=== PATIENT | female | born 1960 | race Caucasian/White ===

== ENCOUNTER 2021-04-20 07:18 | Inpatient (IN) ==
[2021-04-20] MEDS ORDERED: Tdap (Boostrix) Vaccine 0.5 ML SYRINGE IM ONE (07:55)
[2021-04-20 08:19] LABS: Bilirubin,Urine Negative (Negative); Blood,Urine Negative (Negative); Clarity,Urine Clear (Clear); Color,Urine Colorless (Yellow); Glucose,Urine (UA) Normal (Normal); Ketones,Urine Negative (Negative); Leukocyte Esterase,Urine Trace (Negative); Nitrite,Urine Negative (Negative); Protein,Urine Negative (Neg-Trace); RBC,Urine 0-3 per hpf (0-3); Specific Gravity,Urine < 1.005 (1.010-1.025); Urobilinogen,Urine Normal (Normal); WBC,Urine 0-3 per hpf (0-3)
[2021-04-20 08:21] LABS: Basophils # 0.1 K/mcL (0.0-0.2); Basophils % 1.3 %; Eosinophils # 0.1 K/mcL (0.0-0.6); Eosinophils % 1.3 %; Hematocrit 44.7 % (35.3-44.9); Hemoglobin 15.2 g/dL (11.5-15.4); Immature Granulocytes % 0.4 % (0-4); Lymphocytes # 1.2 K/mcL (0.6-4.6); Lymphocytes % 14.8 %; Mean Corpuscular Hemoglobin 29.9 pg (28.0-33.3); Mean Corpuscular Volume 87.8 fL (83.0-100.0); Mean Platelet Volume 9.6 fL (9.4-12.4); Monocytes # 0.7 K/mcL (0.0-1.3); Monocytes % 8.8 %; Neutrophils # 5.7 K/mcL (1.6-8.9); Platelet Count 265 K/mcL (140-400); Red Blood Count 5.09 M/mcL (3.82-4.97); Red Cell Distribution Width 12.4 % (11.5-14.5); Segmented Neutrophils % 73.4 %; White Blood Count 7.8 K/mcL (4.3-11.1)
[2021-04-20 08:22] LABS: Amphetamine Screen,Urine Negative ng/mL (Cutoff=1000); Barbiturate Screen,Urine Negative ng/mL (Cutoff=200); Benzodiazepines Screen,Urine Negative ng/mL (Cutoff=300); Cannabinoid Screen,Urine Negative ng/mL (Cutoff = 50); Cocaine Screen,Urine Negative ng/mL (Cutoff= 300); Opiate Screen,Urine Negative ng/mL (Cutoff=300); Phencyclidine Screen,Urine Negative ng/mL (Cutoff=25)
[2021-04-20 09:11] LABS: Estimated Average Glucose 114 mg/dl; Hemoglobin A1C 5.6 %
[2021-04-20 10:21] LABS: Acetaminophen < 10 mcg/mL (10-20); Alanine Aminotransferase 9 Units/L (7-52); Albumin 5.3 g/dL (3.5-5.7); Albumin/Globulin Ratio 1.8 (1.1-2.2); Alkaline Phosphatase 75 Units/L (34-104); Aspartate Amino Transferase 16 Units/L (13-39); BUN/Creatinine Ratio 12 (6-26); Bilirubin,Direct 0.1 mg/dL (0.0-0.2); Bilirubin,Indirect 0.7 mg/dL (0.0-1.0); Bilirubin,Total 0.8 mg/dL (0.3-1.0); Blood Urea Nitrogen 7 mg/dL (8-23); Carbon Dioxide 26 mEq/L (23-29); Chloride 97 mEq/L (98-107); Chol/HDL Ratio 1.9 (0-4.9); Cholesterol 131 mg/dL (< 200); Ethanol < 10 mg/dL (Less than 10); Globulin 2.9 g/dL (2.4-3.5); Glucose 72 mg/dL (70-105); HDL Cholesterol 69 mg/dL (40-59); LDL Cholesterol,Calculated 48 mg/dL (< 100); Osmolality,Calculated 275 (280-300); Potassium 3.1 mEq/L (3.5-5.1); Salicylate < 2.5 mg/dL (15.0-30.0); Sodium 134 mEq/L (136-145); Thyroid Stimulating Hormone 0.647 mcIU/mL (0.340-5.600); Total Protein 8.2 g/dL (6.4-8.9); Triglycerides 69 mg/dL (< 150); eGFR For African Americans > 60 (> 60); eGFR For Non-African Americans > 60 (> 60)
[2021-04-20 13:55] LABS: Influenza A PCR Negative (Negative); Influenza B PCR Negative (Negative); Resp. Syncytial Virus PCR Negative (Negative)
[2021-04-20 13:56] LABS: SARS-CoV-2 by PCR (In House) Negative (Negative)
[2021-04-20] MEDS ORDERED: *HR* LORazepam 2 MG/ML VIAL IM PRN (16:54)
[2021-04-20] MEDS ORDERED: QUEtiapine Fumarate 25 MG TABLET PO PRN (16:54)
[2021-04-20] MEDS: Mirtazapine 15 MG TABLET PO SCH (21:10)
[2021-04-20] MEDS: Acetaminophen 325 MG TABLET PO PRN (22:06)
[2021-04-21] MEDS: *HR* LORazepam 1 MG TABLET PO PRN (03:51)
[2021-04-21] MEDS ORDERED: MOM Conc 10 ML UD.LIQ PO PRN (08:20)
[2021-04-21] MEDS ORDERED: Mag Hydrox/Al Hydrox/Simeth 30 ML UDC PO PRN (08:20)
[2021-04-21] MEDS: amLODIPine 5 MG TABLET PO SCH (08:47)
[2021-04-21] MEDS: Aspirin 81 MG TAB.CHEW PO SCH (08:48)
[2021-04-21] MEDS: Magic Mouthwash 10 ML UD Cup PO SCH ×2 (11:52→15:58)
[2021-04-21] MEDS: Mirtazapine 15 MG TABLET PO SCH (21:29)
[2021-04-21] MEDS: Melatonin 3 MG TABLET PO PRN (21:30)
[2021-04-22] MEDS: QUEtiapine Fumarate 25 MG TABLET PO PRN ×4 (01:05→20:57)
[2021-04-22] MEDS: Acetaminophen 325 MG TABLET PO PRN (02:26)
[2021-04-22] MEDS: Magic Mouthwash 10 ML UD Cup PO SCH ×3 (08:17→16:00)
[2021-04-22] MEDS: amLODIPine 5 MG TABLET PO SCH (08:17)
[2021-04-22] MEDS: Aspirin 81 MG TAB.CHEW PO SCH (08:17)
[2021-04-22] MEDS: Mirtazapine 15 MG TABLET PO SCH (20:57)
[2021-04-22] MEDS: *HR* LORazepam 1 MG TABLET PO PRN (23:23)
[2021-04-23] MEDS: Melatonin 3 MG TABLET PO PRN ×2 (00:21→21:04)
[2021-04-23] MEDS: Metoprolol XL (24 HR) Succ 50 MG TAB.ER.24H PO SCH (08:59)
[2021-04-23] MEDS: Magic Mouthwash 10 ML UD Cup PO SCH ×3 (08:59→16:29)
[2021-04-23] MEDS: amLODIPine 5 MG TABLET PO SCH (08:59)
[2021-04-23] MEDS: Aspirin 81 MG TAB.CHEW PO SCH (09:00)
[2021-04-23] MEDS: Mirtazapine 15 MG TABLET PO SCH (21:02)
[2021-04-23] MEDS: *HR* LORazepam 0.5 MG TABLET PO PRN (21:05)
[2021-04-24] MEDS: Magic Mouthwash 10 ML UD Cup PO SCH ×3 (07:38→16:33)
[2021-04-24] MEDS: *HR* LORazepam 0.5 MG TABLET PO PRN (07:58)
[2021-04-24] MEDS: amLODIPine 5 MG TABLET PO SCH (08:36)
[2021-04-24] MEDS: Aspirin 81 MG TAB.CHEW PO SCH (08:40)
[2021-04-24] MEDS: Metoprolol XL (24 HR) Succ 50 MG TAB.ER.24H PO SCH (08:40)
[2021-04-24] MEDS: Cholecalciferol (D-3) 1,000 UNIT (25MCG) TABLET PO SCH (08:41)
[2021-04-24] MEDS ORDERED: *HR* LORazepam 0.5 MG TABLET PO ONE (11:47)
[2021-04-24] MEDS: *HR* LORazepam 1 MG TABLET PO SCH (20:31)
[2021-04-24] MEDS: Melatonin 3 MG TABLET PO PRN (20:31)
[2021-04-24] MEDS: Mirtazapine 15 MG TABLET PO SCH (20:32)
[2021-04-25] MEDS: Magic Mouthwash 10 ML UD Cup PO SCH ×3 (07:47→16:29)
[2021-04-25] MEDS: amLODIPine 5 MG TABLET PO SCH (08:42)
[2021-04-25] MEDS: Aspirin 81 MG TAB.CHEW PO SCH (08:42)
[2021-04-25] MEDS: Metoprolol XL (24 HR) Succ 50 MG TAB.ER.24H PO SCH (08:43)
[2021-04-25] MEDS: *HR* LORazepam 1 MG TABLET PO SCH ×2 (08:43→20:46)
[2021-04-25] MEDS: Cholecalciferol (D-3) 1,000 UNIT (25MCG) TABLET PO SCH (08:43)
[2021-04-25] MEDS ORDERED: Sennosides 8.6 MG TABLET PO SCH (10:45)
[2021-04-25 19:22] LABS: Metanephrine, Plasma 0.34 nmol/L (0.00-0.49)
[2021-04-25] MEDS: Melatonin 3 MG TABLET PO PRN (20:46)
[2021-04-25] MEDS: Sennosides 8.6 MG TABLET PO SCH (20:46)
[2021-04-25] MEDS: Mirtazapine 15 MG TABLET PO SCH (20:46)
[2021-04-26] MEDS: Magic Mouthwash 10 ML UD Cup PO SCH ×3 (07:46→16:17)
[2021-04-26] MEDS: amLODIPine 5 MG TABLET PO SCH (08:40)
[2021-04-26] MEDS: Aspirin 81 MG TAB.CHEW PO SCH (08:41)
[2021-04-26] MEDS: *HR* LORazepam 1 MG TABLET PO SCH ×2 (08:41→20:46)
[2021-04-26] MEDS: Metoprolol XL (24 HR) Succ 50 MG TAB.ER.24H PO SCH (08:41)
[2021-04-26] MEDS: Cholecalciferol (D-3) 1,000 UNIT (25MCG) TABLET PO SCH (08:41)
[2021-04-26] MEDS ORDERED: *HR* LORazepam 0.5 MG TABLET PO PRN (09:52)
[2021-04-26 20:46] VITALS: PULSE 75
[2021-04-26] MEDS: Sennosides 8.6 MG TABLET PO SCH (20:46)
[2021-04-26] MEDS: Mirtazapine 15 MG TABLET PO SCH (20:46)
[2021-04-26] MEDS: Melatonin 3 MG TABLET PO PRN (20:46)
[2021-04-27] MEDS: Magic Mouthwash 10 ML UD Cup PO SCH ×2 (08:05→11:38)
[2021-04-27] MEDS: *HR* LORazepam 1 MG TABLET PO SCH (08:05)
[2021-04-27] MEDS: amLODIPine 5 MG TABLET PO SCH (08:33)
[2021-04-27] MEDS: Metoprolol XL (24 HR) Succ 50 MG TAB.ER.24H PO SCH (08:34)
[2021-04-27] MEDS: Cholecalciferol (D-3) 1,000 UNIT (25MCG) TABLET PO SCH (08:34)
[2021-04-27] MEDS: Aspirin 81 MG TAB.CHEW PO SCH (08:34)
[2021-04-27 08:39] VITALS: BP 146/104; TEMP 98; O2SAT 97
== END 2021-04-27 15:55 | disposition home or self-care (01) | DRG 756 ==
LOC: EMEROOARM 07:18 → 1ANU 16:43
PROVIDERS: ADMIT Psychiatry & Neurology Psychiatry; ATTEND Psychiatry & Neurology Psychiatry

== ENCOUNTER 2022-01-19 07:39 | Inpatient (IN) ==
[2022-01-19 08:26] LABS: Basophils # 0.2 K/mcL (0.0-0.2); Basophils % 2.4 %; Eosinophils # 0.1 K/mcL (0.0-0.6); Eosinophils % 1.4 %; Hematocrit 43.1 % (35.3-44.9); Immature Granulocytes % 0.1 % (0-4); Lymphocytes # 1.7 K/mcL (0.6-4.6); Lymphocytes % 23.7 %; Mean Corpuscular HGB Conc 34.8 g/dL (31.6-35.5); Mean Corpuscular Hemoglobin 30.1 pg (28.0-33.3); Mean Corpuscular Volume 86.5 fL (83.0-100.0); Mean Platelet Volume 9.5 fL (9.4-12.4); Monocytes # 0.5 K/mcL (0.0-1.3); Monocytes % 7.1 %; Neutrophils # 4.6 K/mcL (1.6-8.9); Platelet Count 268 K/mcL (140-400); Red Blood Count 4.98 M/mcL (3.82-4.97); Red Cell Distribution Width 14.1 % (11.5-14.5); Segmented Neutrophils % 65.3 %; White Blood Count 7.1 K/mcL (4.3-11.1)
[2022-01-19 08:29] LABS: Amphetamine Screen,Urine Negative ng/mL (Cutoff=1000); Barbiturate Screen,Urine Negative ng/mL (Cutoff=200); Benzodiazepines Screen,Urine Positive ng/mL (Cutoff=300)
[2022-01-19 08:30] LABS: Cannabinoid Screen,Urine Negative ng/mL (Cutoff = 50); Cocaine Screen,Urine Negative ng/mL (Cutoff= 300); Opiate Screen,Urine Negative ng/mL (Cutoff=300); Phencyclidine Screen,Urine Negative ng/mL (Cutoff=25)
[2022-01-19 08:45] LABS: Acetaminophen < 10 mcg/mL (10-20); BUN/Creatinine Ratio 8 (6-26); Blood Urea Nitrogen 5 mg/dL (8-23); Calcium 9.4 mg/dL (8.6-10.3); Carbon Dioxide 28 mEq/L (23-29); Chloride 98 mEq/L (98-107); Ethanol < 10 mg/dL (Less than 10); Glucose 90 mg/dL (70-105); Osmolality,Calculated 271 (280-300); Potassium 4.2 mEq/L (3.5-5.1); Salicylate < 2.5 mg/dL (15.0-30.0); Sodium 132 mEq/L (136-145); eGFR For African Americans > 60 (> 60); eGFR For Non-African Americans > 60 (> 60)
[2022-01-19 08:59] LABS: Bacteria,Urine Few per hpf (None-Few); Bilirubin,Urine Negative (Negative); Blood,Urine Negative (Negative); Clarity,Urine Clear (Clear); Color,Urine Light-Yellow (Yellow); Glucose,Urine (UA) Normal (Normal); Hyaline Casts,Urine Few per lpf (None Seen); Ketones,Urine Negative (Negative); Leukocyte Esterase,Urine Moderate (Negative); Mucus,Urine Few per lpf (None-Few); Nitrite,Urine Negative (Negative); PH,Urine 6.5 pH Units (5.0-8.0); Protein,Urine Trace mg/dL (Neg-Trace); RBC,Urine 0-3 per hpf (0-3); Specific Gravity,Urine 1.013 (1.010-1.025); Squamous Epithelial Cell,Urine Few per hpf (None-Few); Urobilinogen,Urine Normal (Normal)
[2022-01-19] MEDS ORDERED: *HR* LORazepam 1 MG TABLET PO PRN (10:07)
[2022-01-19] MEDS ORDERED: MOM Conc 10 ML UD.LIQ PO PRN (10:07)
[2022-01-19] MEDS ORDERED: Mag Hydrox/Al Hydrox/Simeth 30 ML UDC PO PRN (10:07)
[2022-01-19] MEDS ORDERED: *HR* LORazepam 2 MG/ML VIAL IM PRN (10:07)
[2022-01-19] MEDS ORDERED: QUEtiapine Fumarate 25 MG TABLET PO PRN ×2 (10:07→10:10)
[2022-01-19] MEDS ORDERED: traZODone 50 MG TABLET PO PRN (10:07)
[2022-01-19 11:17] LABS: Influenza A PCR Negative (Negative); Influenza B PCR Negative (Negative); Resp. Syncytial Virus PCR Negative (Negative); SARS-CoV-2 by PCR (In House) Negative (Negative)
[2022-01-19] MEDS ORDERED: Melatonin 3 MG TABLET PO SCH (21:00)
[2022-01-19] MEDS: Mirtazapine 15 MG TABLET PO SCH (21:25)
[2022-01-19] MEDS: diazePAM 5 MG TABLET PO PRN (21:25)
[2022-01-20] MEDS: Acetaminophen 325 MG TABLET PO PRN (03:15)
[2022-01-20] MEDS: Aspirin Enteric Coated 81 MG Tablet PO SCH (08:43)
[2022-01-20] MEDS: Cholecalciferol (D-3) 1,000 UNIT (25MCG) TABLET PO SCH (08:43)
[2022-01-20] MEDS: Vitamin B Complex/Vit C/Vit E 1 EACH TABLET PO SCH (08:43)
[2022-01-20] MEDS: amLODIPine 5 MG TABLET PO SCH (08:44)
[2022-01-20] MEDS: diazePAM 5 MG TABLET PO PRN (08:46)
[2022-01-20] MEDS ORDERED: Melatonin 3 MG TABLET PO PRN (09:15)
[2022-01-20 12:01] LABS: Estimated Average Glucose 114 mg/dl; Hemoglobin A1C 5.6 %
[2022-01-20 12:09] LABS: Chol/HDL Ratio 2.1 (0-4.9)
[2022-01-20 12:22] LABS: Thyroid Stimulating Hormone 0.375 mcIU/mL (0.340-5.600)
[2022-01-20] MEDS: diazePAM 5 MG TABLET PO SCH ×2 (14:58→21:29)
[2022-01-20 17:35] LABS: Bacteria,Urine Few per hpf (None-Few); Bilirubin,Urine Negative (Negative); Blood,Urine Trace (Negative); Clarity,Urine Turbid (Clear); Color,Urine Yellow (Yellow); Glucose,Urine (UA) Normal (Normal); Ketones,Urine Negative (Negative); Leukocyte Esterase,Urine Large (Negative); Mucus,Urine Few per lpf (None-Few); Nitrite,Urine Negative (Negative); Protein,Urine Trace mg/dL (Neg-Trace); Specific Gravity,Urine 1.024 (1.010-1.025); Squamous Epithelial Cell,Urine Few per hpf (None-Few); Urobilinogen,Urine Normal (Normal); WBC,Urine TNTC per hpf (0-3)
[2022-01-20] MEDS: Melatonin 3 MG TABLET PO SCH (21:28)
[2022-01-20] MEDS: Mirtazapine 15 MG TABLET PO SCH (21:29)
[2022-01-21] MEDS: Acetaminophen 325 MG TABLET PO PRN (03:31)
[2022-01-21] MEDS: diazePAM 5 MG TABLET PO SCH (08:32)
[2022-01-21] MEDS: Venlafaxine XR (24 HR) 37.5 MG CAP.ER.24H PO SCH (08:33)
[2022-01-21] MEDS: Vitamin B Complex/Vit C/Vit E 1 EACH TABLET PO SCH (08:33)
[2022-01-21] MEDS: amLODIPine 5 MG TABLET PO SCH (08:33)
[2022-01-21] MEDS: Aspirin Enteric Coated 81 MG Tablet PO SCH (08:34)
[2022-01-21] MEDS: Cholecalciferol (D-3) 1,000 UNIT (25MCG) TABLET PO SCH (08:34)
[2022-01-21 20:18] VITALS: O2SAT 95
[2022-01-21] MEDS ORDERED: diazePAM 10 MG TABLET PO SCH (21:00)
[2022-01-21] MEDS: Melatonin 3 MG TABLET PO SCH (21:20)
[2022-01-21] MEDS: Mirtazapine 15 MG TABLET PO SCH (21:20)
[2022-01-22] MEDS: Acetaminophen 325 MG TABLET PO PRN (03:38)
[2022-01-22] MEDS: amLODIPine 5 MG TABLET PO SCH (08:19)
[2022-01-22] MEDS: Venlafaxine XR (24 HR) 37.5 MG CAP.ER.24H PO SCH (08:20)
[2022-01-22] MEDS: Aspirin Enteric Coated 81 MG Tablet PO SCH (08:20)
[2022-01-22] MEDS: Cholecalciferol (D-3) 1,000 UNIT (25MCG) TABLET PO SCH (08:20)
[2022-01-22] MEDS: Vitamin B Complex/Vit C/Vit E 1 EACH TABLET PO SCH (08:20)
[2022-01-22] MEDS ORDERED: diazePAM 5 MG TABLET PO SCH (09:00)
[2022-01-22 09:24] VITALS: BP 159/103; PULSE 92; TEMP 97.8
== END 2022-01-22 14:00 | disposition home or self-care (01) | DRG 751 ==
LOC: EMEROOARM 07:39 → 1ANU 11:58
PROVIDERS: ADMIT Psychiatry & Neurology Psychiatry; ATTEND Psychiatry & Neurology Psychiatry